=== PATIENT | female | born 1995 | race Caucasian/White ===

== ENCOUNTER 2025-02-01 17:50 | Emergency (ER) | payer OTHER, SELFPAY ==
[2025-02-01 18:00] VITALS: BP 121/73
[2025-02-01 18:31] LABS: Hematocrit 43.0 % (37.0-47.0); Hemoglobin 14.4 g/dL (12.0-16.0); Mean Corp Hgb Conc. 33.5 g/dL (33.0-37.0); Mean Corpuscular Volume 89.8 fL (81.0-99.0); Nucleated Red Blood Cells % 0 %; Platelet Count 361 10^3/uL (130-400); Red Cell Dist. Width 13.3 % (11.5-14.5)
[2025-02-01 18:55] LABS: ALT (SGPT) 18 U/L (0-35); AST (SGOT) 18 U/L (14-36); Albumin 5.1 g/dl (3.5-5.0); Alkaline Phosphatase 51 U/L (38-126); Blood Urea Nitrogen 12 mg/dl (7-17); Calcium 9.9 mg/dl (8.4-10.2); Carbon Dioxide 27 mmol/L (22-30); Chloride 102 mmol/L (98-107); Glucose 111 mg/dl (70-99); Potassium 4.3 mmol/L (3.5-5.1); Sodium 140 mmol/L (135-145); Total Protein 8.5 g/dl (6.3-8.2); eGFR > 60.00
[2025-02-01 19:08] LABS: Troponin I < 0.012 ng/ml
[2025-02-01 19:17] LABS: COVID-19 Antigen Negative (Negative)
[2025-02-01 19:34] VITALS: BP 118/90
--- NOTE | 2025-02-01 20:13 | ED.GENMED ---
History of Present Illness
General
Chief Complaint: Chest Problem
Source: patient
Exam Limitations: none
Time Seen by Provider: 02/01/25 19:44
Nursing documentation reviewed up to this point in time: agreed with
History of Present Illness
History of Present Illness:
29 yo female presents with chest heaviness that began 01/21. The patient reports that the heaviness is constant. It fluctuates, sometimes feeling like 'bubbles.' The onset followed the consumption of an alcoholic beverage and subsequent intake of a
prescription cough medication, after which the patient experienced notable tachycardia, with a resting heart rate reported over 100 beats per minute. The patient feels 'hyper-aware' of her heart rate since then. There is a history of anxiety and
panic attacks, with a recent panic attack noted. The patient reports no current use of medications for anxiety. The patient also mentions recent nasal congestion and was prescribed a nasal spray after a virtual doctor consultation, which provided
relief. There is no history of other significant symptoms such as fever, chills, nausea, or vomiting.
Admits this may very well be her anxiety
She does have a history of GERD and took Pepto-Bismol twice which she states did not help. She was seen by urgent care last night and they sent a prescription to her pharmacy for omeprazole which she has not yet picked up
Past History
Past History
ED Past Medical History: Psychiatric (anxiety/panic attacks Hx agoraphobia)
ED Past Surgical History: Tonsilectomy
Social History
Tobacco: Non-smoker
Alcohol: None
Drug: None
Personal:
Living: with family
Employment: Not employed
Review of Systems
Review of Systems
Allergies reviewed?: Yes
All Other Systems: ROS reviewed and negative except as documented in HPI and ROS
Phy Exam
Physical Exam
Physical Exam:
GENERAL: No acute distress. A&Ox3.
CONSTITUTIONAL: Afebrile.
EYES: clear, conjunctivae normal
ENMT: moist mucus membranes, Pharynx nl
RESPIRATORY: Regular respirations, nonlabored, lungs clear.
CARDIOVASCULAR: Regular rate and rhythm, no murmurs, no rubs.
GI: Soft, nontender, normal BS
MUSCULOSKELETAL: Moves with ease. Well perfused.
SKIN: Warm, dry, pink
PSYCH: Normal mood and affect. Well kept, interactive and appropriate
NEUROLOGIC: Awake, alert and oriented. No focal neurological deficits
Course
Orders/Labs/Results
Orders:
Orders
02/01/25 18:04
EKG [Electrocardiogram (*1)] Urgent
Reason for Study: Chest Pain
EKG- Treatment ONCE
02/01/25 18:18
COVID-19 Antigen Urgent
Source: Nasal Swab
Complete Blood Count/With Diff Urgent
Comprehensive Metabolic Panel Urgent
Troponin I Urgent
Influenza A+B Rapid Molecular Urgent
[facility]Y Source: Nasal Swab
Specimen Description:
02/01/25 19:32
Chest [CR Chest - 2 Views ] Urgent
Comment:
Reason For Exam: cough
Abnormal Lab Results
02/01/25
18:18
Absolute Neuts (auto) 7.5 H 10^3/uL
(1.4-6.5)
Lymphocytes % 20.2 L %
(20.5-51.1)
Glucose 111 H mg/dl
(70-99)
Total Protein 8.5 H g/dl
(6.3-8.2)
Albumin 5.1 H g/dl
(3.5-5.0)
02/01/25 18:18
02/01/25 18:18
Vital Signs
Initial and Last Documented VS:
Initial Vital Signs
Temp Pulse Resp BP Pulse Ox
98.2 F 100 20 121/73 98
02/01/25 18:00 02/01/25 18:00 02/01/25 18:00 02/01/25 18:00 02/01/25 18:00
Last Documented Vital Signs
Temp Pulse Resp BP Pulse Ox
98.2 F 98 18 118/90 98
02/01/25 18:00 02/01/25 19:34 02/01/25 19:34 02/01/25 19:34 02/01/25 20:15
MDM/Problems Addressed
Differential Diagnosis Includes:
anxiety, GERD, viral illness/URI, costochondritis, PNA
MDM/Problems Addressed:
29 yo female presents with chest heaviness that began 01/21. The patient reports that the heaviness is constant. It fluctuates, sometimes feeling like 'bubbles.' The onset followed the consumption of an alcoholic beverage and subsequent intake of a
prescription cough medication, after which the patient experienced notable tachycardia, with a resting heart rate reported over 100 beats per minute. The patient feels 'hyper-aware' of her heart rate since then. There is a history of anxiety and
panic attacks, with a recent panic attack noted. The patient reports no current use of medications for anxiety. The patient also mentions recent nasal congestion and was prescribed a nasal spray after a virtual doctor consultation, which provided
relief. There is no history of other significant symptoms such as fever, chills, nausea, or vomiting.
Admits this may very well be her anxiety
She does have a history of GERD and took Pepto-Bismol twice which she states did not help. She was seen by urgent care last night and they sent a prescription to her pharmacy for omeprazole which she has not yet picked up
EKG NSR heart rate 84
CBC, CMP normal
CMP normal troponin WNL
Chest x-ray NAD
Pt reassured of neg workup, she will picking tech her Omeprazole and take it. She will f/u with PCP next week if still symptomatic
Most likely GERD with anxiety
*Pulse Oximetry
SaO2: 98
Oxygen Mode of Delivery: Room air
Patient hypoxic: no
*EKG
EKG Intrepretation Date: 02/01/25
Interpretation: normal
Heart Rate: 84
Rate: normal
Rhythm: sinus and sinus arrhythmia
[place]: normal axis
Interval: normal interval
QRS Pattern: normal QRS
Ischemia: no ischemia
*Critical Care Note
Total Time (30-74mins, 75-104mins- exclusive of procedures): Not Applicable
ED Attending Note
-
Portions of this chart may have been created with voice recognition software.� Occasional wrong word or��sound alike� substitutions may have occurred due to the inherent limitations of voice recognition software.
Discharge Plan
Departure
Patient Disposition: Home (Routine Discharge)
Date of Disposition: 02/01/25
Time of Disposition: 21:05
Patient with high blood pressure during this ER visit?: No
Condition: Good
Covid-19: Negative COVID-19
Discharge Problem:
Atypical chest pain
Instructions: Acid reflux and GERD in adults, Chest pain
Prescriptions:
No Action
prenat.vits,daniela,hkc-[id number]-kfcdv Tablet
1 tab PO DAILY
All Day Allergy (cetirizine) 10 mg Capsule
10 mg PO DAILY PRN (Reason: ALLERGY)
acetaminophen 325 mg Tablet
650 mg PO Q4HPRN PRN (Reason: mild pain) Qty: 0 0RF
sennosides-docusate sodium 8.6-50 mg Tablet
1 tab PO DAILYPRN PRN (Reason: constipation) Qty: 0 0RF
diphenhydramine HCl [Banophen] 25 mg Capsule
25 mg PO Q4HPRN PRN (Reason: itching) Qty: 0 0RF
ibuprofen 600 mg Tablet
400 mg PO Q4HPRN PRN (Reason: moderate pain/cramps) Qty: 0 0RF
Referrals:
Any Sanabria CRNP [Family Provider]
Activity Restrictions/Additional Instructions:
As we discussed, your workup here today shows nothing worrisome. Specifically no sign of a heart attack or pneumonia
Your COVID test is negative
Your blood work is normal
Your chest x-ray is normal
Start the omeprazole that was called to your pharmacy by urgent care last night take it for at least a full week and let your doctor know if it help
See your primary care doctor if you are not much improved by next week
Interventions
Interventions:
*General Assessment Last Done: 02/01/25 18:00
*Neglect/Abuse Screening Last Done: 02/01/25 18:00
*ED COVID-19 Vaccine History Last Done: 02/01/25 19:49
*ED Influenza Vaccine History Last Done: 02/01/25 19:49
[facility] Fall Risk Assessment Tool Last Done: 02/01/25 19:49
*Risk Screen - Suicide (C-SSRS) Last Done: 02/01/25 18:00
*Nursing Disposition Last Done: 02/01/25 21:12
ED- Cardiac Assessment Last Done: 02/01/25 19:49
ED- Pulmonary Assessment Last Done: 02/01/25 19:49
Discharge Date and Time
Discharge Date/Time: 02/01/25 21:12
Print Language: GREEK
== END 2025-02-01 21:12 | disposition home or self-care (01) ==
LOC: EMR 17:50
PROVIDERS: EMERGENCY PHYSICIAN Student in an Organized Health Care Education/Training Program; FAMILY PHYSICIAN Nurse Practitioner Family
DX: R07.89 Other chest pain (principal); K21.9 Gastro-esophageal reflux disease without esophagitis; F40.00 Agoraphobia, unspecified; F41.9 Anxiety disorder, unspecified
CPT/HCPCS: 99284; 71046; 80053; 84484; 85025; 87502; 87811; 93005